=== PATIENT | male | born 1965 | race Hispanic/Latino ===

== ENCOUNTER 2016-11-01 07:58 | Day surgery (SDC) | payer OTHER ==
[2016-10-31 11:32] VITALS: BMI 26.4
[2016-11-01 08:32] LABS: BASO # 0.01 K/mm3 (0.0-2.0); BASO % 0.2 % (0.0-3.0); EOS # 0.1 (0.0-0.7); EOS % 1.7 % (1.5-5.0); GRAN # 3.11 (1.4-6.5); GRAN % 60.4 % (50.0-68.0); HEMOGLOBIN 15.3 g/dL (14.0-18.0); LYMPH # 1.6 (1.2-3.4); LYMPH % 30.1 % (22.0-35.0); MEAN CELL VOLUME 97.3 fl (80.0-105.0); MEAN CORPUSCULAR HEMOGLOBIN 34.8 pg (25.0-35.0); MEAN CORPUSCULAR HGB CONC 35.7 g/dl (31.0-37.0); MONO # 0.4 (0.1-0.6); MONO % 7.6 % (1.0-6.0); PLATELET COUNT 144 10^3/uL (120.0-450.0); RED CELL DISTRIBUTION WIDTH 12.8 % (11.5-14.5); WHITE BLOOD COUNT 5.2 10^3/ul (4.5-11.0)
[2016-11-01 08:35] LABS: BLOOD UREA NITROGEN 10 mg/dL (7-21); CALCIUM 9.5 mg/dL (8.4-10.5); GFR AFRICAN-AMERICAN > 60; GFR NON-AFRICAN AMERICAN > 60
[2016-11-01 08:37] LABS: INR 0.94 (0.93-1.08); PARTIAL THROMBOPLASTIN TIME 26.1 Seconds (23.7-30.8); PROTHROMBIN TIME 10.2 Seconds (9.9-11.8)
[2016-11-01 08:43] VITALS: TEMP 98.7
[2016-11-01] MEDS ORDERED: Lidocaine 2% Inj (20ml) ONE (09:11)
[2016-11-01] MEDS ORDERED: Nitroglycerin 50mg in D5W 50 MG/250 ML BOTTLE IV ONE (09:23)
[2016-11-01] MEDS ORDERED: Midazolam 2 MG/2 ML VIAL ONE ×2 (10:38→10:52)
[2016-11-01] MEDS ORDERED: Phenylephrine 10 mg/ml Inj ONE (10:39)
[2016-11-01] MEDS ORDERED: Iohexol 350 MG/100 ML VIAL ONE (10:39)
[2016-11-01] MEDS ORDERED: DiphenhydrAMINE 50 mg/ml Inj ONE ×2 (10:46→11:01)
[2016-11-01 13:09] VITALS: RESP 16; O2SAT 98
--- NOTE | 2016-11-01 14:12 | PCM.PROC ---
Pre Procedure Note - Allergies Allergies: Allergies No Known Allergies Allergy (Verified 10/31/16 11:32) - Physical Exam Vital Signs: Vital Signs 11/01/16 11/01/16 11/01/16 08:20 12:00 12:15 Temperature 98.7 F 98.7 F 98.7 F Pulse Rate 86 83 78 Respiratory 18 18 18 Rate Blood Pressure 134/85 128/79 130/90 O2 Sat by Pulse 97 97 97 Oximetry 11/01/16 11/01/16 11/01/16 12:30 12:45 13:00 Temperature Pulse Rate 80 83 87 Respiratory 18 18 16 Rate Blood Pressure 145/92 H 135/86 142/80 O2 Sat by Pulse 99 96 98 Oximetry Procedures - Additional Procedures Progress: Procedure performed left and right heart catheterizations via 6 Indian right radial artery and 7 Indian right brachial vein. Coronary anatomy findings Coronary system left dominant. Left main large size vessel bifurcates into left anterior descending artery and left circumflex coronary artery. Left anterior descending artery large size vessel which bifurcates into a dual headed anatomy. Left circumflex coronary artery gives off a large obtuse marginal branch and left posterior descending artery. Right coronary artery small nondominant feeding the sphenoid atrial and AV jimmy branches. Hemodynamics. Normal filling pressures high cardiac output 8.4 L/min normal wedge pressure. Impression Normal coronary arteries Normal filling pressures Normal pulmonary artery pressures Severe mitral regurgitation
--- NOTE | 2016-11-01 14:20 | CP.PCM.PN ---
Subjective - Date & Time of Evaluation Date of Evaluation: 11/01/16 Time of Evaluation: 14:19 - Subjective Subjective: s/p CHCx Objective - Vital Signs/Intake and Output Vital Signs (last 24 hours): Temp Pulse Resp BP Pulse Ox 98.7 F 87 16 142/80 98 11/01/16 12:15 11/01/16 13:00 11/01/16 13:00 11/01/16 13:00 11/01/16 13:00 Intake and Output: 11/01/16 11/01/16 06:59 18:59 Intake Total 100 Balance 100 - Medications Medications: Current Medications Acetaminophen (Tylenol 325mg Tab) 325 mg PO DAILY SAVANNAH Ondansetron HCl (Zofran Inj) 4 mg IVP ONCE PRN PRN Reason: Nausea/Vomiting - Labs Labs: 11/01/16 08:07 11/01/16 08:07 PT 10.2 Seconds (9.9-11.8) 11/01/16 08:07 INR 0.94 (0.93-1.08) 11/01/16 08:07 APTT 26.1 Seconds (23.7-30.8) 11/01/16 08:07 Assessment and Plan (1) S/P cardiac catheterization Assessment & Plan: Procedure performed left and right heart catheterizations via 6 Mexican right radial artery and 7 Mexican right brachial vein. Coronary anatomy findings Coronary system left dominant. Left main large size vessel bifurcates into left anterior descending artery and left circumflex coronary artery. Left anterior descending artery large size vessel which bifurcates into a dual headed anatomy. Left circumflex coronary artery gives off a large obtuse marginal branch and left posterior descending artery. Right coronary artery small nondominant feeding the sphenoid atrial and AV jimmy branches. Hemodynamics. Normal filling pressures high cardiac output 8.4 L/min normal wedge pressure. Impression Normal coronary arteries Normal filling pressures Normal pulmonary artery pressures Severe mitral regurgitation Status: Acute
[2016-11-01 14:29] VITALS: BP 139/96; PULSE 91
[2016-11-01] MEDS ORDERED: Bacitracin 500 Units/gm Oint Foilpak UD ONE (15:02)
--- NOTE | 2016-11-01 15:42 | CARDCATH ---
PROCEDURE DATE: 11/01/2016 INDICATIONS: Preoperative evaluation prior to repair for severe mitral regurgitation. PROCEDURES: 1. Left heart catheterization with selective left and right coronary angiogram. 2. Left ventriculogram. 3. Right heart catheterization with serial hemodynamics and cardiac output. 4. A 6-Vietnamese right radial arterial access. 5. A 7-Vietnamese right brachial venous access. 6. Wrist band applied for hemostasis at the radial access site. 7. Manual pressure dressing applied at the brachial venous site for hemostasis. TECHNIQUE FOR PROCEDURE: After obtaining informed consent, the patient was brought to the cardiac cath suite in postabsorptive nonsedated state. The patient was prepped and draped in the usual sterile fashion. Lidocaine 2% was used for infiltration anesthesia. Using modified Seldinger technique, a 7-Vietnamese sheath was introduced into the right brachial venous site. Subsequently, 6-Vietnamese sheath was introduced into the right radial artery. After securing both the venous and arterial accesses under fluoroscopic guidance 7-[place]namese [place]-Johnson catheter was advanced serially through the brachial vein through SVC, RA, RV-PA, and pulmonary capillary wedge position. Hemodynamics were obtained. Subsequently the PA catheter was put in the pulmonary artery site and cardiac output were obtained using the thermodilution method. Right heart hemodynamic, right atrial pressures 13/7/4, mean right atrial pressure was 4 mmHg. Right ventricular pressures 20/4/5, right ventricular end diastolic pressure was 5 mmHg. Pulmonary artery pressures 19/9/14, mean pulmonary artery was 14 mmHg. Pulmonary capillary wedge pressure 8/9/6, mean wedge pressure was 6 mmHg. After obtaining the hemodynamics cardiac output was obtained using a thermodilution method. Three serial injections were obtained using thermodilution method. The cardiac output was calculated to be 8.53 L per minute and cardiac index was 4.05 L per minute per m2. Left heart catheterization. Subsequently attention was paid over JR4 and JL4 diagnostic catheter was used to engage the right and left coronary systems. Subsequently over a J-wire pigtail catheter was advanced across the aortic valve into the LV. Left ventriculogram was performed in MARKHAM view using power injector with 20 mL of dye at 650 PSI. Left ventricular end diastolic pressure was 9 mmHg. Coronary anatomy: Left main bifurcation into left anterior descending artery and left circumflex coronary artery, left anterior descending artery, and left circumflex coronary artery, left anterior descending artery gives rise to medium sized diagonal branches. Left anterior descending artery is a large-sized vessel with mild irregularities. Left circumflex coronary artery large sized vessel gives off obtuse marginal branch and a left PDA. Coronary circulation is left dominant system with mild luminal irregularity. Right coronary artery is small nondominant feeding the SA and the AV jimmy branches. After obtaining the coronary anatomy simultaneous LV-PA, simultaneous LV-RV, and simultaneous LV and RA pressures were obtained. There were significant V waves consistent with mitral regurgitation and there was end diastolic wedge gradients of 10 mmHg consistent with severe MR. IMPRESSION: Normal coronaries, high cardiac output with left ventricular wedge gradients consistent with mitral regurgitation and prominent V waves. RECOMMENDATIONS: The patient is to undergo mitral valve repair, which has been scheduled to be done at [facility] under Dr. Evan Sloan. We will forward a copy of this record to Dr. Evan Sloan. Dimitrios Hartmann MD
== END 2016-11-01 16:10 | disposition home or self-care (01) ==
LOC: CATH 07:58
PROVIDERS: ATTEND Internal Medicine Interventional Cardiology
DX: I34.0 Nonrheumatic mitral (valve) insufficiency (principal); Z01.810 Encounter for preprocedural cardiovascular examination; I10 Essential (primary) hypertension
CPT/HCPCS: 36415; 80048; 85025; 85610; 85730; 86850; 86900; 93460; 99152; 99153; C1894 ×2; J1200; J1644 ×2; J2250; J2405; J3010; Q9967 ×2